=== PATIENT | male | born 1955 | race Caucasian/White ===

== ENCOUNTER 2019-01-28 09:02 | Outpatient (CLI) | payer OTHER ==
--- NOTE | 2019-01-28 11:55 | ULT ---
RIGHT UPPER QUADRANT ULTRASOUND: Date: 01/28/19 HISTORY: Abnormal liver function tests. FINDINGS: The limited visualized portions of the pancreas have a normal sonographic appearance, but the majorit y of the pancreas is obscured by shadowing from bowel gas. The liver is at the upper limits of normal to borderline enlarged measuring 17.2 cm in craniocaudal dimensions. The left hepatic lobe is not we ll seen due to shadowing from adjacent bowel gas. There is mild increased echogenicity of the liver r elative to the right kidney suggesting diffuse fatty infiltration. A subcentimeter hypoechoic focus i s seen adjacent to the gallbladder. Gallbladder has a normal sonographic appearance without gallbladder calculus visualized. The common d uct measures 0.6 cm, which is at the upper limits of normal in size. Visualized portions of the IVC and right kidney demonstrate a normal sonographic appearance. The righ t kidney measures 12.0 cm in length. IMPRESSION: 1. Fatty infiltration of the liver with probably tiny focal area of fatty sparing adjacent to the ga llbladder measuring less than 1.0 cm. Liver is at the upper limits of normal in size. 2. No gallbladder calculus is visualized. The common duct is at the upper limits of normal measuring 0.6 cm in diameter. POS: [facility]
== END 2019-01-28 09:03 | disposition home or self-care (01) ==
LOC: BICULT 09:02
PROVIDERS: ATTEND Internal Medicine Gastroenterology
DX: R94.5 Abnormal results of liver function studies (principal); K76.0 Fatty (change of) liver, not elsewhere classified
CPT/HCPCS: 76705

== ENCOUNTER 2022-09-22 07:07 | Outpatient (CLI) | payer MEDICARE, OTHER | END 2022-09-22 07:08 | disposition home or self-care (01) | LOC: BICULT 07:07 | PROVIDERS: ATTEND Family Medicine | DX: R32 Unspecified urinary incontinence (principal); K76.0 Fatty (change of) liver, not elsewhere classified; Z85.048 Personal history of other malignant neoplasm of rectum, rectosigmoid junction, and anus | CPT/HCPCS: 76700; 76856 ==

== ENCOUNTER 2022-12-16 07:34 | Outpatient (CLI) | payer MEDICARE, OTHER ==
[2022-12-16] MEDS ORDERED: Iopamidol-370 76% 500 ML 1 ML ONE (09:17)
== END 2022-12-16 07:35 | disposition home or self-care (01) ==
LOC: BICCT 07:34
PROVIDERS: ATTEND Family Medicine
DX: N39.0 Urinary tract infection, site not specified (principal)
CPT/HCPCS: 74178; Q9967

== ENCOUNTER 2024-05-05 17:33 | Inpatient (IN) | payer MEDICARE, OTHER ==
[2024-05-05] MEDS ORDERED: Cefepime 2 GM VIAL ONE (18:28)
[2024-05-05 18:39] LABS: #Basophils 0.03 10x3/uL (0.0-0.2); #Eosinphils Less than 0.03 10x3/uL (0.0-0.7); %Basophils 0.2 % (0.0-1.0); %Eosinophils 0.1 % (0.0-10.0); %Lymphocytes 4.7 % (21.0-51.0); %Monocytes 10.4 % (0.0-10.0); Hematocrit 40.4 % (42.0-52.0); Hemoglobin 14.1 g/dL (14.0-18.0); Mean Corpuscular HGB CONC 34.9 g/dL (32.0-36.0); Mean Corpuscular Hemoglobin 31.7 pg (27.0-31.0); Mean Corpuscular Volume 90.8 fL (78.0-98.0); Mean Platelet Volume 9.9 fL (7.4-10.4); Platelet Count 228 10x3/uL (130-400); RBC Distribution Width 12.5 % (11.5-14.5); Red Blood Cell (RBC) Count 4.45 mill/uL (4.70-6.10)
[2024-05-05 18:58] LABS: ALT (SGPT) 20 U/L (8-55); AST (SGOT) 17 U/L (5-34); Albumin 3.6 g/dL (3.4-4.8); Alkaline Phosphatase 58 U/L (40-110); Anion Gap 12 mmol/L (10-20); BUN (Urea Nitrogen) 16 mg/dL (8.4-25.7); Bilirubin, Total 0.8 mg/dL (0.2-1.2); Calc. Creatinine Clearance 0 mL/min (70-130); Calcium 9.2 mg/dL (7.8-10.44); Carbon Dioxide 23 mmol/L (23-31); Chloride 98 mmol/L (98-107); Estimated GFR 93; Glucose 227 mg/dL (80-115); Lipase 81 U/L (8-78); Potassium 3.7 mmol/L (3.5-5.1); Protein, Total 6.6 g/dL (5.8-8.1); Sodium 129 mmol/L (136-145)
[2024-05-05 18:59] LABS: Troponin I Less than 0.010 ng/mL (< 0.028)
[2024-05-05 19:38] LABS: Influenza A by NAA Not Detected (NotDetected); Influenza B by NAA Not Detected (NotDetected); SARS-CoV-2 NAA Rapid Test Not Detected (NotDetected)
[2024-05-05 20:35] LABS: Bacteria/HPF 2+ HPF (None Seen); Bilirubin Negative (Negative); Blood, Urine Trace (Negative); CAUTI Indications for Culture Fever or rigors; Clarity Turbid (Clear); Glucose, Urine (Dipstick) 500 mg/dL (Negative); Ketone, Urine 60 mg/dL (Negative); Leukocyte 25 Leu/uL (Negative); Nitrite 2+ (Negative); Protein, Urine (Dipstick) 10 mg/dL (Neg-Trace); RBC/HPF 0-3 HPF (0-3); Specific Gravity, Urine 1.024 (1.002-1.036); Squamous Epithelial 0-3 HPF (0-3); Urobilinogen Normal mg/dL (Less than 2); Yeast-Budding 1+ HPF (None Seen); pH, Urine 5.5 (5.0-9.0)
[2024-05-05 20:39] LABS: Urine Culture Reflex No No
[2024-05-05] MEDS ORDERED: Acetaminophen 500 MG TAB ONE (20:41)
[2024-05-05] MEDS: Vancomycin (BATCH) 2.5 GM in Premix 1 BAG IVPB SCH (22:43)
[2024-05-05] MEDS ORDERED: Dextrose 5% in Water 1,000 ML IV PRN (23:09)
[2024-05-05] MEDS ORDERED: Glucagon 1 MG/ML KIT IM PRN (23:09)
[2024-05-05] MEDS ORDERED: Dextrose 50% Abboject 50 ML SYRINGE SLOW IVP PRN (23:09)
[2024-05-05] MEDS ORDERED: Ondansetron PF 4 MG/2 ML Vial IVP PRN (23:11)
[2024-05-05] MEDS ORDERED: Ondansetron ODT 4 MG TAB PO PRN (23:11)
[2024-05-05] MEDS: HumaLOG 300 UNITS/3 ML VIAL SC PRN (23:59)
[2024-05-06 00:04] VITALS: BMI 40.7
[2024-05-06] MEDS: Acetaminophen 325 MG TAB PO PRN (00:56)
[2024-05-06] MEDS: Sodium Chloride 0.65% Nasal 44 ML BOT EA NARE PRN (02:22)
[2024-05-06 04:44] LABS: #Basophils 0.03 10x3/uL (0.0-0.2); #Eosinphils Less than 0.03 10x3/uL (0.0-0.7); %Basophils 0.2 % (0.0-1.0); %Eosinophils 0.1 % (0.0-10.0); %Lymphocytes 10.5 % (21.0-51.0); %Monocytes 12.5 % (0.0-10.0); %Neutrophils 76.1 % (42.0-75.0); Hematocrit 37.5 % (42.0-52.0); Hemoglobin 12.8 g/dL (14.0-18.0); Mean Corpuscular HGB CONC 34.1 g/dL (32.0-36.0); Mean Corpuscular Hemoglobin 30.7 pg (27.0-31.0); Mean Corpuscular Volume 89.9 fL (78.0-98.0); Mean Platelet Volume 10.8 fL (7.4-10.4); Platelet Count 226 10x3/uL (130-400); RBC Distribution Width 12.6 % (11.5-14.5); Red Blood Cell (RBC) Count 4.17 mill/uL (4.70-6.10)
[2024-05-06 05:15] LABS: Anion Gap 16 mmol/L (10-20); BUN (Urea Nitrogen) 12 mg/dL (8.4-25.7); Calc. Creatinine Clearance 174 mL/min (70-130); Calcium 8.9 mg/dL (7.8-10.44); Carbon Dioxide 23 mmol/L (23-31); Chloride 103 mmol/L (98-107); Estimated GFR 97; Glucose 217 mg/dL (80-115); Potassium 3.6 mmol/L (3.5-5.1); Sodium 138 mmol/L (136-145)
[2024-05-06] MEDS: HumaLOG 300 UNITS/3 ML VIAL SC PRN (07:28)
[2024-05-06] MEDS: cefTRIAXone\\ROCEPHIN 2 GM in Sodium Chloride 0.9% 100 ML IVPB SCH (08:44)
[2024-05-06] MEDS: Famotidine 20 MG TAB PO SCH (08:44)
[2024-05-06] MEDS: Losartan 25 MG TAB PO SCH (08:44)
[2024-05-06] MEDS: metFORMIN 500 MG TAB PO SCH (08:45)
[2024-05-06] MEDS: Hydrochlorothiazide 25 MG TAB PO SCH (08:45)
[2024-05-06] MEDS: Famotidine/PF 20 mg/2ml Vial SLOW IVP SCH (08:55)
[2024-05-06] MEDS: Atorvastatin Calcium 20 MG TAB PO SCH (21:45)
[2024-05-07 05:34] LABS: Anion Gap 18 mmol/L (10-20); BUN (Urea Nitrogen) 11 mg/dL (8.4-25.7); Calc. Creatinine Clearance 178 mL/min (70-130); Calcium 9.1 mg/dL (7.8-10.44); Carbon Dioxide 23 mmol/L (23-31); Chloride 101 mmol/L (98-107); Estimated GFR 98; Glucose 212 mg/dL (80-115); Potassium 3.6 mmol/L (3.5-5.1); Sodium 138 mmol/L (136-145)
[2024-05-07 05:48] LABS: #Basophils 0.04 10x3/uL (0.0-0.2); %Basophils 0.4 % (0.0-1.0); %Eosinophils 1.1 % (0.0-10.0); %Lymphocytes 16.1 % (21.0-51.0); %Monocytes 10.6 % (0.0-10.0); %Neutrophils 71.2 % (42.0-75.0); Hematocrit 36.2 % (42.0-52.0); Hemoglobin 12.3 g/dL (14.0-18.0); Mean Corpuscular Hemoglobin 31.6 pg (27.0-31.0); Mean Corpuscular Volume 93.1 fL (78.0-98.0); Mean Platelet Volume 10.6 fL (7.4-10.4); Platelet Count 220 10x3/uL (130-400); RBC Distribution Width 12.8 % (11.5-14.5); Red Blood Cell (RBC) Count 3.89 mill/uL (4.70-6.10)
[2024-05-08 04:35] VITALS: BP 142/74; TEMP 98
[2024-05-08 06:19] LABS: #Basophils 0.03 10x3/uL (0.0-0.2); %Basophils 0.4 % (0.0-1.0); %Eosinophils 2.1 % (0.0-10.0); %Lymphocytes 17.2 % (21.0-51.0); %Monocytes 10.7 % (0.0-10.0); %Neutrophils 68.7 % (42.0-75.0); Hematocrit 37.9 % (42.0-52.0); Hemoglobin 12.9 g/dL (14.0-18.0); Mean Corpuscular Hemoglobin 30.7 pg (27.0-31.0); Mean Corpuscular Volume 90.2 fL (78.0-98.0); Mean Platelet Volume 10.8 fL (7.4-10.4); Platelet Count 235 10x3/uL (130-400); RBC Distribution Width 12.6 % (11.5-14.5)
[2024-05-08 07:07] LABS: Anion Gap 14 mmol/L (10-20); BUN (Urea Nitrogen) 12 mg/dL (8.4-25.7); Calc. Creatinine Clearance 193 mL/min (70-130); Calcium 9.8 mg/dL (7.8-10.44); Carbon Dioxide 25 mmol/L (23-31); Chloride 99 mmol/L (98-107); Estimated GFR 100; Glucose 244 mg/dL (80-115); Potassium 3.5 mmol/L (3.5-5.1); Sodium 134 mmol/L (136-145)
== END 2024-05-08 11:46 | disposition home or self-care (01) | DRG 871 ==
LOC: ERS 17:33 → 2NO 21:21
PROVIDERS: ADMIT Student in an Organized Health Care Education/Training Program; ATTEND Internal Medicine
DX: A41.9 Sepsis, unspecified organism (principal); E11.10 Type 2 diabetes mellitus with ketoacidosis without coma; N39.0 Urinary tract infection, site not specified; E87.1 Hypo-osmolality and hyponatremia; E11.65 Type 2 diabetes mellitus with hyperglycemia; R32 Unspecified urinary incontinence; Z79.899 Other long term (current) drug therapy; Z79.891 Long term (current) use of opiate analgesic; I10 Essential (primary) hypertension; E78.5 Hyperlipidemia, unspecified; E86.0 Dehydration
CPT/HCPCS: 36415; 36416; 71045; 80048; 80053; 80061; 81001; 82010; 82043; 83036; 83605; 83690; 83880; 84443; 84484; 85025; 87040; 87086; 93005; G0103; J0692; J0696; J1815; J3370; J3490